=== PATIENT | female | born 1990 | race Caucasian/White ===

== ENCOUNTER 2023-04-19 19:15 | Outpatient (CLI) | payer OTHER, SELFPAY ==
[2023-04-19 19:20] VITALS: PULSE 81; O2SAT 97
[2023-04-19 19:23] VITALS: BP 110/71; PULSE 86
--- NOTE | 2023-04-19 20:09 | PC.OBNST ---
NST Note NST Note Start: 04/19/23 19:25 Freq: ONCE Status: Active Protocol: Document 04/19/23 20:07 [facility] (Rec: 04/19/23 20:09 [facility] [id number]) NST Note 1 Para (# of births) 0 EDC 07/09/23 Gestational Age In Weeks & Days 28 Weeks & 3 Days Patient Presented with Complaint(s) of Decreased movement Reactive Yes Appropriate for Gestational Age Yes KARYN Santana RN Date 04/19/23 Reactive Yes Appropriate for Gestational Age Yes KARYN Merchant RN Date 04/19/23 OB NST charge Yes Complete NST Note via Write Note Yes The provider's electronic signature indicates the NST is reactive/appropriate for gestational age. *Note to provider: If an addendum is required, open the patient's chart and click on the note under the Nurse/Allied Health tab. The provider's electronic signature indicates the NST is reactive/appropriate for gestational age. *Note to provider: If an addendum is required, open the patient's chart and click on the note under the Nurse/Allied Health tab.
== END 2023-04-19 19:55 | disposition home or self-care (01) ==
LOC: OB OUT 19:16 → OB 19:17
PROVIDERS: Visit Provider Surgery
DX: O36.8130 Decreased fetal movements, third trimester, not applicable or unspecified (principal); Z3A.28 28 weeks gestation of pregnancy
CPT/HCPCS: 59025; 99213

== ENCOUNTER 2023-07-15 17:07 | Inpatient (IN) | payer OTHER, SELFPAY ==
[2023-07-15] VITALS (7 sets, daily range): BP systolic 99–117; BP diastolic 58–80; PULSE 76–113; RESP 16–18; TEMP 37–37.2; O2SAT 98; BMI 34.4
--- NOTE | 2023-07-15 18:04 | PM.OBHPLI ---
OB - H&P: HPI Labor/Induction History of Present Illness Time Seen by Provider: 18:00 Date Seen: 07/15/23 Chief Complaint: The patient is a 33 year old 1 para 0 at 40 6/7 weeks gestation by 6wk US not c/w LMP, who presents for postdates induction. Chief complaint: Maternity : 1 Para: 0 Date of last menstrual period: 09/19/22 Estimated date of delivery: 06/26/23 Gestational age based on last menstrual period: 42 Narrative: Keisha Taylor is a 33 year old 1 para 0 at 40 6/7 weeks gestation by 6wk US not c/w LMP, who presents for postdates induction. Her overall has been uncomplicated. she did have anemia prior to and this was followed during and improving on iron supplement when last checked 1 month ago. Not feeling contractions. No LOF. +FM. No headaches or vision changes. Has had some nausea, no vomiting. no recent illness otherwise. History of Present Dating criteria: based on 1st trimester US only care: good care Ultrasounds: normal 1st trimester US and normal mid trimester US Medical complications: none Labs Blood type: A (+) positive Rubella: immune RPR/VDLR: nonreactive GBS status: negative HBsAG: negative Meds Home Medications and Allergies Home Medications Medication Instructions Recorded Confirmed Type citalopram 20 mg tablet 20 mg PO DAILY 04/19/23 07/15/23 History clindamycin 1 %-benzoyl peroxide 5 1 applic topical BID 04/19/23 07/15/23 History % topical gel ferrous sulfate 325 mg (65 mg 325 mg PO Q1D 04/19/23 07/15/23 History iron) tablet qrgeucxp-wfw-Aa-FA 1 mg tab PO 04/19/23 History tablet Allergies Allergy/AdvReac Type Severity Reaction Status Date / Time No Known Drug Allergies Allergy Verified 04/19/23 19:49 OB - H&P: Exam Physical Exam: Vital signs: Temp Pulse Resp BP Pulse Ox 98.8 F 113 H 16 117/80 98 07/15/23 17:19 07/15/23 17:19 07/15/23 17:19 07/15/23 17:19 07/15/23 17:18 Constitutional: Constitutional: no acute distress and cooperative Routine HEENT Exam: Head: Present normal inspection Eye: Present normal appearance ENT: Present mucous membranes moist Routine Respiratory Exam: Respiratory: Present CTA bilaterally Routine Cardiovascular Exam: Cardiovascular: RRR Routine Exam: Perineum Description: Normal Detailed Labor and Delivery Exam: Patient Gravid: Yes Dilation (cm): 2 Effacement (%): 50 Cervix position: anterior Consistency: medium Cervical ripeness score: 5 Contraction frequency (min): 0 Fetus (Single): Station: -3 Amniotic Membrane Status: intact Heart Rate Baseline: 130 Monitor Accelerations: Present Monitor Decelerations: None Grinder Machine Setter Variability: Moderate (6-25) Routine Neurological Exam: Present alert and oriented X3 Routine Psychiatric Exam: Present normal affect, normal thought process, cooperative and good insight OB - Problem Based A/P Additional Plan (1) Term : Status: Acute Plan Induction discussed at length in clinic and pt in agreement with plan. Cook catheter placed without difficulty. Will start low dose pitocin overnight per protocol. Reviewed variability in inductions courses, various techniques and all ?'s answered. GBS negative Delivery/Labor/Induction Plan Plan: induction Induction method: Intracervical balloon catheter
[2023-07-15 18:54] LABS: Basophils Absolute Auto 0.01 K/uL (0.00-0.30); Basophils Percent Auto 0.1 % (0.0-3.0); Eosinophils Absolute Auto 0.08 K/uL (0.00-0.50); Hematocrit 31.9 % (33.0-51.0); Hemoglobin* 10.9 gm/dL (12.0-16.0); Immature Granulocytes Abs Auto 0.04 K/uL (0.00-0.30); Immature Granulocytes Pct Auto 0.5 %; Lymphocytes Percent Auto 19.6 % (20-44); Mean Corpuscular HGB Conc 34 gm/dL (32-36); Mean Corpuscular Hemoglobin 31 pg (26-34); Mean Corpuscular Volume 90 fL (80-100); Monocytes Percent Auto 8.2 % (0.0-11.0); Neutrophils Percent Auto 70.6 % (42.0-72.0); Platelet Count* 238 K/uL (140-440); RDW Coefficient of Variation % 12.3 % (11.5-15.5); Red Blood Count 3.54 m/uL (4.00-5.20); White Blood Count* 8.21 K/uL (4.50-11.00)
[2023-07-15 18:55] LABS: Slide Review Reflex No
[2023-07-15] MEDS: OXYTOCIN 30 unit/500 ML in NS 30 UNIT/500 ML BAG IVPB (21:05)
[2023-07-15] MEDS: LACTATED RINGERS 1000 ML 1,000 ML 125 ML IV (21:05)
[2023-07-15] MEDS: hydrOXYzine pamoate 25 MG CAPSULE 100 MG PO (21:15)
[2023-07-16] VITALS (76 sets, daily range): BP systolic 82–139; BP diastolic 48–106; PULSE 60–108; RESP 16–18; TEMP 36.4–37.5; O2SAT 93–100
[2023-07-16] MEDS: LACTATED RINGERS 1000 ML 1,000 ML 125 ML IV ×4 (05:08→22:21)
--- NOTE | 2023-07-16 07:13 | P.OBPN_ITS ---
Subjective Time Seen by Provider: 06:30 Date Seen: 07/16/23 Narrative: Pt is G1 at 41weeks being induced for postdates. Cook placed overnight, removed this morning 12 hours later. Low dose pitocin protocol started overnight, now on 9. Pt reports feeling regular ctxs, mild. can talk through them. Objective Vital Signs: Last Vital Signs Temp 98.6 F 07/16/23 05:12 Pulse 75 07/16/23 06:11 Resp 16 07/16/23 05:12 BP 114/75 07/16/23 06:11 Pulse Ox 98 07/15/23 17:18 Pelvic Exam Dilation (cm): 5 Effacement (%): 70 Station: -1 Contractions Monitor mode: External Contraction Frequency: q2-3 min Contraction pattern: Regular Contraction intensity: Moderate Pitocin Rate (mU/min): 9 Assessment Assessment: induction ongoing Station: -1 Amniotic Membrane Status: AROM (at 643 with small amount blood tinged fluid) Heart Rate Baseline: 130 Provider Service Representative Variability: Moderate (6-25) Monitor Accelerations: Present Monitor Decelerations: Early Tracing Comments: prior to AROM was 130's moderate variability, +accels, no decels. After AROM developed 4 recurrent decels, ctxs not picking up well so unclear if early's or lates. Adjusted monitor, changed position and decels improved but still unable draft roller picker ctxs. IUPC placed. No with FHT 130's with moderate variability, occ ear ly decel. Plan Plan: -Risks vs benefits AROM discussed with pt and option AROM vs continued increased pitocin discussed. Decided on AROM as above with small blood tinged fluid. Decels started after, rechecked and /-1, stretchy. Decels improved with changing position. Ctx strength increasing and pt now breathing through. IUPC placed. Occ early. discussed all the above with pt and and all ?'s answered.
[2023-07-16] MEDS: ONDANSETRON 2 MG/ML inj 4 MG IV (07:45)
[2023-07-16] MEDS: LACTATED RINGERS 1000 ML 1,000 ML 925 ML IV (08:46)
[2023-07-16] MEDS: ROPIVACAINE 0.2% 100 ml 100 ML 12 MG EPIDURAL (09:02)
--- NOTE | 2023-07-16 09:03 | P.ANBPRC_ITS ---
[facility] Medical History (Updated 07/15/23 @ 18:19 by Sofie Granados, DO) Anxiety ?F41.9 - Anxiety disorder, unspecified (ICD-10) Depression ?F32.A - Depression, unspecified (ICD-10) Social History What is your current living situation?: I presently have a place to live Problems where you live: no known problems In the past 12 months, utilities in danger of being shut off: no In past 12 months, lack of transportation kept you from medical appts, meetings, work, or getting things needed for daily living: no In the past 12 mos, have been you worried that your food would run out before you had money to buy more?: never true In the past 12 mos, the food you bought just didn't last and you didn't have money to buy more?: never true Smoking Status: Never smoker How often does anyone, including family, friends and others, physically hurt you : never How often does anyone, including family, friends and others, insult or talk down to you: never How often does anyone, including family, friends and others, threaten you with harm: never How often does anyone, including family, friends and others, scream or curse at you: never Meds Home Medications and Allergies Home Medications Medication Instructions Recorded Confirmed Type citalopram 20 mg tablet 20 mg PO DAILY 04/19/23 07/15/23 History clindamycin 1 %-benzoyl peroxide 5 1 applic topical BID 04/19/23 07/15/23 History % topical gel ferrous sulfate 325 mg (65 mg 325 mg PO Q1D 04/19/23 07/15/23 History iron) tablet [id number]-xhh-Al-[id number] 1 mg 1 tab PO DAILY 04/19/23 07/15/23 History tablet Allergies Allergy/AdvReac Type Severity Reaction Status Date / Time No Known Drug Allergies Allergy Verified 04/19/23 19:49 Results Labs Labs: Laboratory Results - last 24 hr 07/15/23 18:45 WBC 8.21 RBC 3.54 L Hgb 10.9 L Hct 31.9 L MCV 90 MCH 31 MCHC 34 RDW Coeff of Albertina 12.3 Plt Count 238 Neut % (Auto) 70.6 Lymph % (Auto) 19.6 L [place] % (Auto) 8.2 Eos % (Auto) 1.0 Baso % (Auto) 0.1 Neut # (Auto) 5.80 Lymph # (Auto) 1.60 [place] # (Auto) 0.70 Eos # (Auto) 0.08 Baso # (Auto) 0.01 Abs Immat Gran (auto) 0.04 Imm/Tot Granulo (auto) 0.5 Blood Type A Positive Antibody Screen NEGATIVE Vital Signs Vital Signs: Last Vital Signs Temp 98.6 F 07/16/23 08:01 Pulse 69 07/16/23 09:01 Resp 16 07/16/23 05:12 BP 118/71 07/16/23 09:01 Pulse Ox 100 07/16/23 08:59 Weight: 85.548 kg Height: 157.48 cm Anesthesia Procedures Epidural Insertion Patient Location: OB Start Time: 08:40 Stop Time: 09:04 Start Date: 07/16/23 Stop Date: 07/16/23 Reason for Block: procedure for pain Patient Position: sitting Performed By: Alexandro Calhoun Preanesthetic Checklist: IV checked, risks and benefits discussed, monitors and equipment checked, pre-op evaluation, timeout performed and anesthesia consent Prep: chlorhexidine gluconate Monitoring: blood pressure monitoring, continuous pulse oximetry and heart rate Approach: midline Vertebral Space: lumbar (1-5) Epidural Technique: MARTHA saline Needle Type: Tuohy needle Injection Technique: continuous catheter Needle gauge: 17 Needle Length (cm): 10 cm Needle Insertion Depth (cm): 7 Catheter Gauge: 19 Catheter Type: multi-orifice Catheter at skin depth (cm): 13 Test Dose Result: negative and lidocaine 1.5% with epinephrine 1 to 200,000
[2023-07-16] MEDS: PHENYLEPHRINE 100 MCG/ML SYRINGE IVP ×2 (10:50→11:51)
--- NOTE | 2023-07-16 11:21 | P.OBPN_ITS ---
Subjective Time Seen by Provider: 11:10 Date Seen: 07/16/23 Narrative: Notifed by RN pt have variables. Have changed positions, given IVF. pitocin has been down to 4 since 946. pt is comfortable with epidural Objective Vital Signs: Last Vital Signs Temp 98.6 F 07/16/23 08:01 Pulse 68 07/16/23 11:19 Resp 16 07/16/23 05:12 BP 109/58 L 07/16/23 11:19 Pulse Ox 100 07/16/23 08:59 Pelvic Exam Dilation (cm): 9 Effacement (%): 80 Station: 0 Contractions Monitor mode: Internal Contraction pattern: Regular Pitocin Rate (mU/min): 4 Assessment Assessment: active labor Station: 0 Amniotic Membrane Status: AROM (at 643 with small amount blood tinged fluid) Heart Rate Baseline: 140 Security Police Officer Variability: Moderate (6-25) Monitor Accelerations: Present Monitor Decelerations: Variable Plan Plan: Low BP, RN gave phenylephrine with recurrent variables. Cervix with significant change since last check around 9:30 6cm and now 9cm--with cervix mostly on right and barely rim anterior and posterior and not on left. Pt currently on right side. Discussed update with pt and . Continue with expectant management
[2023-07-16] MEDS: ePHEDrine sulfate 5 MG/ML inj 10 MG IVP (12:13)
--- NOTE | 2023-07-16 14:14 | PM.OBPNL ---
Subjective Time Seen by Provider: 13:00 Date Seen: 07/16/23 Narrative: Pt has been 9cm since around 1100. dilated quickly from 6-9 over approximately 1.5 hours. When I checked pt shortly after 1100, cervix was no longer palpable on left but present on right and rim posteriorly and anteriorly. Mom placed on right side and rechecked by nursing around noon and RN reported now cervix noted on left but not right. Pt was not feeling any pressure or ctxs. Epidural was turned down and position changed. Objective Vital Signs: Last Vital Signs Temp 98.6 F 07/16/23 08:01 Pulse 78 07/16/23 14:04 Resp 16 07/16/23 05:12 BP 130/70 07/16/23 14:04 Pulse Ox 100 07/16/23 08:59 Pelvic Exam Dilation (cm): 9 Effacement (%): 100 Station: 0 Contractions Monitor mode: Internal Contraction pattern: Regular Contraction intensity: Moderate Pitocin Rate (mU/min): 4 Assessment Assessment: induction ongoing Station: 0 Amniotic Membrane Status: AROM (at 643 with small amount blood tinged fluid) Heart Rate Baseline: 130 Fdc Variability: Moderate (6-25) Monitor Accelerations: Present Monitor Decelerations: Variable Plan Plan: I rechecked pt around 1300 and cervix now symmetrical with cervix felt all around but remains 9cm and head now more behind pubic symphysis. ?OP position, difficult to assess on exam. Bedside US confirms cephalic. Contractions are decreasing. There has been some continual bloody mucous with checks but no edmond bleeding. pt without pain. FHT's category 2. I consulted OB application specialist Dr Buckley. Discussed labor dystocia and concern for possible signs of abruption with station/position now feeling different, some bleeding noted and decreased contractions. Dr Buckley on floor, reviewed strip and case with me. Dr Buckley noted even if possible abruption, treatment is delivery. MVU's not adequate. Recommended increasing pitocin. Monitoring closely. Discussed with pt and . All ?'s answered.
--- NOTE | 2023-07-16 17:25 | PM.OBCN1 ---
OB - CN: HPI Date of Consult Time Seen by Provider: 17:25 Date Seen: 07/16/23 Patient: Christine Patient Consult date: 07/16/23 Requesting Physician: Sofie Granados DO Primary Care Provider: Not a Local Provider Consult Narrative Reason for consult: other (Concern for abruption) Narrative: The patient is a 33 year old G 1 P 0 at 41 weeks gestation that was admitted to the Center on 07/15/23 for induction of labor in the setting of late term gestation. course was complicated by gestational anemia and maternal mood disorder. Her induction course has included Cook catheter, Pitocin and artificial rupture membranes. Labor course significant for labor dystocia in the active phase. I was initially consulted at [address] Granados given concern for placental abruption. Patient is noted to have made rapid change from 6-9 cm dilated, with intermittent variable decelerations and vaginal bleeding. She denied any edmond vaginal bleeding, rather noted increased volume of mucus/blood with cervical exams and on patient thighs. Since achieving dilation of 9.5cm at 11:00 a.m., she noted no further change and did place an intrauterine pressure catheter. Despite this, she has continued to have inadequate cervical change and ongoing vaginal bleeding. Pitocin was turned off to allow for discussion. We reviewed that her clinical picture may be consistent with a placental abruption or just excess bloody show. Regardless, status is reassuring and primarily category 1. As such, plan to proceed with Pitocin titration pending heart rate and IUPC data. We are hopeful if we can achieve adequate MVU, that she would reach complete dilation for hopeful . Care was resumed by Dr. Granados - I did not see/examine the patient at this time. Following this discussion, Pitocin titration was continued as above. Patient continued to be unchanged at 9.5 cm dilation for a total of 6 hours of inadequate contractions. Dr. Granados and I revisited Keisha's clinical course. Fortunately, she has not had any vaginal bleeding and heart rate tracing has been reassuring - category 1 to category 2 for periods of variable decelerations. At present, baseline is 150 beats per minute with moderate variability and rare variable decelerations. Discussed my recommendation to proceed with primary delivery in the setting of arrest of dilation. Pitocin was discontinued. I presented to the bedside to meet Keisha and her partner alognside Dr. Taylor. We again discussed the indication for primary delivery being arrested dilation in the active phase of labor, where continuing with effective management/augmentation would increase her risk for hemorrhage. I recommend primary delivery and they were in agreement. We discussed the risks of surgery - including bleeding, infection, damage to surrounding structures. She has an active type and screen on file, would be agreeable to blood transfusion if necessary. Plan to proceed with perioperative azithromycin and Ancef for surgical prophylaxis. She understands the uterus, tubes, ovaries, bowel, bladder, blood vessels or baby could be injured in . All questions answered to the best my abilities. Plan to proceed to the operating room for primary delivery. History History 1 Elective abortions Para 0 Spontaneous abortions Hx # Term Pregnancies Ectopic pregnancies Hx # Pregnancies Multiple births Number of Living Children 0 Labs Blood type: A (+) positive Rubella: immune RPR/VDLR: nonreactive GBS status: negative HBsAG: negative OB Labs: Lab Assessment Start: 07/15/23 20:00 Freq: ONCE Status: Complete Protocol: [employer].OBGBS Activity Type Activity Date Activity User E-sign Co-sign Detail Recorded Client Recorded Date Recorded By Document 07/15/23 21:40 UMESH [id number] 07/15/23 21:44 UMESH 07/15/23 21:40 Lab Assessment GBS Status negative GBS Additional Criteria None No Treatment Needed OK Are Labs Available Yes Maternal Blood Type A Maternal RH Factor Positive Evaluate Maternal Rubella Immune Status Immune Hepatitis B Surface Antigen Negative Maternal HIV Status Negative Maternal Syphillis (RPR) Status Negative [facility] Medical History (Updated 07/15/23 @ 18:19 by Sofie Granados, DO) Anxiety ?F41.9 - Anxiety disorder, unspecified (ICD-10) Depression ?F32.A - Depression, unspecified (ICD-10) Social History What is your current living situation?: I presently have a place to live Problems where you live: no known problems In the past 12 months, utilities in danger of being shut off: no In past 12 months, lack of transportation kept you from medical appts, meetings, work, or getting things needed for daily living: no In the past 12 mos, have been you worried that your food would run out before you had money to buy more?: never true In the past 12 mos, the food you bought just didn't last and you didn't have money to buy more?: never true Smoking Status: Never smoker How often does anyone, including family, friends and others, physically hurt you: never How often does anyone, including family, friends and others, insult or talk down to you: never How often does anyone, including family, friends and others, threaten you with harm: never How often does anyone, including family, friends and others, scream or curse at you: never Meds Home Medications and Allergies Home Medications Medication Instructions Recorded Confirmed Type citalopram 20 mg tablet 20 mg PO DAILY 04/19/23 07/15/23 History clindamycin 1 %-benzoyl peroxide 5 1 applic topical BID 04/19/23 07/15/23 History % topical gel ferrous sulfate 325 mg (65 mg 325 mg PO Q1D 04/19/23 07/15/23 History iron) tablet pcwqwlzl-pdb-Fp-FA 1 mg 1 tab PO DAILY 04/19/23 07/15/23 History tablet Allergies Allergy/AdvReac Type Severity Reaction Status Date / Time No Known Drug Allergies Allergy Verified 04/19/23 19:49 OB - H&P: Exam Physical Exam: Vital signs: Temp Pulse Resp BP Pulse Ox 98.3 F 82 16 123/71 100 07/16/23 15:03 07/16/23 17:18 07/16/23 05:12 07/16/23 17:18 07/16/23 08:59 OB - Results Labs Labs: Short CBC 07/15/23 Range/Units 18:45 WBC 8.21 (4.50-11.00) K/uL Hgb 10.9 L (12.0-16.0) gm/dL Hct 31.9 L (33.0-51.0) % Plt Count 238 (140-440) K/uL OB - CN: A/P Assessment and Plan (1) Term : Status: Acute
--- NOTE | 2023-07-16 17:32 | PM.OBPNL ---
Subjective Time Seen by Provider: 16:45 Date Seen: 07/16/23 Narrative: pt reports feeling pressure with contractions and some persistent between contractions. She has been trying various laboring positions Objective Vital Signs: Last Vital Signs Temp 98.3 F 07/16/23 15:03 Pulse 82 07/16/23 17:18 Resp 16 07/16/23 05:12 BP 123/71 07/16/23 17:18 Pulse Ox 100 07/16/23 08:59 Pelvic Exam Dilation (cm): 9.5 Effacement (%): 100 Station: 1+ Contractions Monitor mode: Internal Contraction pattern: Regular Contraction intensity: Moderate Pitocin Rate (mU/min): 12 Assessment Assessment: induction ongoing and other (labor dystocia, arrest of dilitation) Station: +1 Amniotic Membrane Status: AROM (at 643 with small amount blood tinged fluid) Heart Rate Baseline: 150 Residential Variability: Moderate (6-25) Monitor Accelerations: Present Monitor Decelerations: Variable Plan Plan: Pt without significant cervical change now for [address] Buckley OB monitoring analyst. Discussed with pt and risks vs benefits c/s vs continuing with attempts at vaginal delivery. All ?'s answered. They would like to proceed with c/s. Dr Buckley and OR crew notified.
[2023-07-16] MEDS: AZITHROMYCIN 500 MG in 0.9 % SODIUM CHLORIDE 250 ml 250 ML 255 MG IVPB (17:37)
[2023-07-16] MEDS: METHYLERGONOVINE MALEATE 0.2 MG/ML INJ IV (18:17)
[2023-07-16] MEDS: miSOPROStoL 800 MCG/4 TABLET PR (19:07)
--- NOTE | 2023-07-16 19:13 | P.OBPRC_ITS ---
Procedure Time Seen by Provider: 19:13 Date of procedure: 07/16/23 Pre-op diagnosis: Arrest of dilation Post-op diagnosis: same Procedure Done: only Will [facility] bill your pro fee for this procedure?: Yes Blood Loss Measurement Type: QBL (1.16L) Bakri Used: No Urine Output (mL): 200 Urine Output Comment: Bloody prior to incision, noted to be clearing in the tubing at end of case Surgeon: Ruslan Buckley MD Anesthesia Type: Epidural Findings: ROP position Normal uterus, tubes and ovaries Procedure Name: Primary delivery Procedure Description: PROCEDURE IN DETAIL: Patient was taken to the operating room with IV running. She received cefazolin and azithryomycin in preoperative prophylaxis. Epidural anesthesia had previously been administered. James catheter was previously inserted. She was prepped and draped in the usual sterile fashion. Anesthesia was tested and found to be adequate. A low-transverse skin incision was made with a scalpel and carried through to the underlying layer of fascia with the scalpel. The subcutaneous fat was dissected off the underlying fascia with Bovie and gentle blunt dissection. The fascia was nicked in the midline with a scalpel, and this incision was extended laterally with scissors. The fascia was elevated with Mahin clamps and rectus muscles were deflected. The rectus muscles were in the midline. Peritoneum was identified and entered bluntly. Bovie was used to widen this opening laterally. Raheem O retractor was inserted and tightened down, providing excellent visualization of the lower uterine segment. The bladder reflection was found to be advanced along the lower uterine segment. A bladder flap was created with a combination of sharp and blunt dissection. Low-transverse uterine incision was made with a scalpel. Incision was widened bluntly. The infant's head was grasped through the hysterotomy (noted to be OP) and delivered with the help of fundal pressure. The remainder of the body delivered without incident. Cord was clamped and cut after 30 seconds. was handed off to attending nurses. The placenta was delivered with gentle traction on the cord. The uterus was cleaned of all clots and debris with the dry lap pad x2. Uterine atony was noted, where methergine and TXA were administered. The hysterotomy was reapproximated with 0 Vicryl in a running, locked fashion. Second layer of the same suture was used in imbricating fashion to obtain hemostasis. The uterus was reintroduced to the peritoneal cavity. Uterine tone was noted to be significantly improved. The hysterotomy was inspected, ongoing small volume bleeding noted at the left margin given serosal extension inferiorly - closed in a running/locking fashion. The adnexa were examined and noted to be normal in appearance. The cul-de-sac and gutters were cleansed with dampened laparotomy sponge, removing any further clots and debris. Mild and intermittent ongoing atony was noted, improved with uterine massage. The Raheem O retractor was removed. The hysterotomy was reexamined and found to be hemostatic. The rectus muscles were examined and found to be hemostatic. The fascia was reapproximated with 0 Vicryl in a running fashion. Subcutaneous fat was irrigated and Bovie used on oozing vessels. The subcutaneous fat was reapproximated with 2 0 vicryl in an interrupted fashion. The skin was closed with a subcuticular stitch of 3-0 Monocryl. Surgical glue was applied above this. Dressing was applied. Fundal massage performed alongside LEARNING AND DEVELOPMENT ASSISTANT. Excellent uterine tone noted, fundus at umbilicus. Prophylactic cytotec was administered rectally. Patient tolerated procedure well was taken to recovery area in stable condition. Complications: hemorrhage secondary to uterine atony Pathology: specimen obtained, sent to pathology Surgery Debrief Performed: Yes Condition: stable Disposition: floor [place] Infant total score - 1 minute: 9 total score - 5 minute: 9
--- NOTE | 2023-07-16 19:56 | P.ANES_ITS ---
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
--- NOTE | 2023-07-16 19:57 | W.PM.NB ---
Nerve Block Nerve Block Time Seen by Provider: 19:14 Date Seen: 07/16/23 Type of block requested by surgeon for post-operative analgesia: TAP Side: bilateral Time out performed: Yes Verification of patient name: Yes Verification of date of : Yes Site marking: site marked Name of person performing procedure: Isidoro Amanuel Continuous monitoring Was continuous monitoring of O2 sat, B/P, electronic device monitor, recorded every 15 minutes?: Yes Procedure Checklist: sterile prep, needles and gloves Ultrasound guided. Images saved: Yes Medications given in 5ml increments after negative aspiration: Marcaine %: 0.25 mL: 30 Needle gauge: 21 and Exparel mL: 10 Needle gauge: 21 Patient tolerated procedure well: Yes Additional comments: Injected in 5mL increments after negative aspiration Block Charges Block Charge (with Pro Fee): TAP Bilateral Use of Ultrasound Machine for Block: Yes- US Guidance/pain block
[2023-07-17] VITALS (22 sets, daily range): BP systolic 95–108; BP diastolic 64–72; PULSE 83–99; RESP 16–18; TEMP 36.6; O2SAT 97–100
[2023-07-17] MEDS: KETOROLAC 30 MG/ML inj IVP ×4 (01:14→20:50)
[2023-07-17] MEDS: CITALOPRAM HYDROBROMIDE 20 MG TABLET PO (08:24)
[2023-07-17] MEDS: DOCUSATE SODIUM 100 MG CAPSULE PO (08:24)
--- NOTE | 2023-07-17 09:24 | PM.OBPNVD1 ---
OB - PN:Subj Subjective Time Seen by Provider: 09:24 Date Seen: 07/17/23 Interval history: Keisha is a 33 y.o. who was admitted to [facility] for [facility]OL for dates.? She had an uncomplicated primary .? ? ? Narrative: The patient feels well.? The pain is well controlled with current medications.? She has no new complaints.? She is breast feeding and reports things are going well.? the patient has done well.? Vitals have been stable.? She has remained afebrile.? Has a good appetite, is tolerating a general diet.? Her catheter is still in at this time.? She is passing gas and has not had a bowel movement.? She is ambulating and denies any dizziness.? Has Small amount of rubra lochia.? OB - PN: Obj Exam Physical Exam: Vital signs: Temp Pulse Resp BP Pulse Ox O2 Del Method 97.9 F 83 18 104/72 99 Room Air 07/17/23 03:34 07/17/23 03:34 07/17/23 06:58 07/17/23 03:34 07/17/23 03:34 07/17/23 03:34 Narrative: VSS.? Afebrile? GENERAL APPEARANCE:? normal affect, alert, no distress? MOOD:? appropriate? HEENT: normocephalic, neck supple, full ROM? CHEST:? Symmetrical chest wall movement.? Normal respiratory effort.? Clear to auscultation? HEART:? regular rate and rhythm? ABDOMEN:? soft, non-tender. Uterine fundus is firm, 1 below Umbilicus, Midline and is appropriate for the stage of recovery.? Bowel sounds present.? EXTREMITIES:? normal and +1 edema? SKIN: warm, dry.? Dressing on, clean/dry/intact.? No signs of infection noted.? Urinary Catheter Management: Urethral: Cath placed during this visit: yes Urethral indwelling: Yes Reason for continuing: surgical procedure Insertion date: 07/16/23 OB - PN: A/P Delivery Assessment and Plan (1) Status post primary low transverse section: Status: Acute (2) Lactating mother: Status: Acute Plan day: 1 Comments: Assessment/Plan? G 1 P 1 status post uncomplicated primary .? ?? 1.? Continue route PP cares? 2.? .? May see if desired? 3.? Anticipate discharge home tomorrow or the following day per pt preference? ?
[2023-07-17 09:39] LABS: Hemoglobin* 8.1 gm/dL (12.0-16.0)
[2023-07-17] MEDS: LACTATED RINGERS 1000 ML 1,000 ML IV (11:02)
--- NOTE | 2023-07-17 16:47 | PM.ANPOST ---
Post Anesthesia Note Post Anesthesia Note Patient seen: Inpatient Respiratory Status: adequate Cardiovascular Status: adequate Mental Status: baseline Pain: adequate Temp: baseline Anesthetic awareness: N/A Complications: none Follow care: none
[2023-07-18 00:41] VITALS: BP 99/66; PULSE 80; RESP 16; O2SAT 99
[2023-07-18] MEDS: LANOLIN CREAM 1 APPLIC TOPICAL (00:55)
[2023-07-18] MEDS: KETOROLAC 30 MG/ML inj IVP (03:50)
[2023-07-18] MEDS: IBUPROFEN 600 MG TABLET PO ×3 (08:19→21:45)
--- NOTE | 2023-07-18 08:36 | P.OBPN_ITS ---
OB - PN:Subj Subjective Date Seen: 07/18/23 Interval history: Keisha is a 33 y.o. who was admitted to [facility] for IOL for dates.? She had an uncomplicated primary .? ? ? Patient comments OB post-: no complaints, pain well controlled, tolerating diet and flatus present Warren status: and doing well Warren feeding status: exclusively Narrative: The patient feels well.? The pain is well controlled with current medications.? She has no new complaints.? Urinary output is adequate and she is voiding without difficulty.? Has a good appetite, is tolerating a general diet, is passing flatus, and has had a bowel movement.? Has small amount of rubra lochia.? She is ambulating well.?She is and states that is going well. She is working with staff to improve her feedings. She denies feeling weak, dizzy, or lightheaded. She is ambulating without difficulty. Will order a repeat Hgb for today. OB - PN: Obj Exam Physical Exam: Vital signs: Temp Pulse Resp BP Pulse Ox O2 Del Method 97.9 F 80 16 99/66 99 Room Air 07/17/23 17:15 07/18/23 00:41 07/18/23 00:41 07/18/23 00:41 07/18/23 00:41 07/18/23 00:41 Narrative: Discharge Examination? GENERAL APPEARANCE:? normal affect, alert, no distress? MOOD:? appropriate? CHEST:? clear to auscultation and percussion? HEART:? regular rate and rhythm? ABDOMEN:? soft, non-tender the uterine fundus is 2 cm Below Umbilicus, Midline and is appropriate for the stage of recovery. Incision well approximated without edema, redness, warmth, or drainage. Glue closure intact.? EXTREMITIES:? normal and no edema? Urinary Catheter Management: Urethral: Cath placed during this visit: yes, but has since been removed by the nurse Urethral indwelling: Yes Reason for continuing: decision to DC catheter Insertion date: 07/16/23 Removal date: 07/17/23 Removal time: 13:15 OB - PN: Obj Data Labs Labs: Laboratory Results - last 24 hr 07/17/23 09:30 Hgb 8.1 L OB - PN: A/P Delivery Assessment and Plan (1) Status post primary low transverse section: Status: Acute (2) Lactating mother: Status: Acute (3) Anemia, : Status: Acute (4) care following delivery: Status: Acute Plan Anticipate discharge tomorrow per patient preference. Plan day: 1 Plan: routine care
[2023-07-18] MEDS: FERROUS SULFATE 325 MG TABLET PO (09:14)
[2023-07-18] MEDS: CITALOPRAM HYDROBROMIDE 20 MG TABLET PO (09:14)
[2023-07-18 09:28] VITALS: BP 113/78; PULSE 110; RESP 16; TEMP 37; O2SAT 99
[2023-07-18 09:39] LABS: Hemoglobin* 7.9 gm/dL (12.0-16.0)
[2023-07-18 16:52] VITALS: BP 109/74; PULSE 85; TEMP 36.8; O2SAT 98
[2023-07-18] MEDS: ACETAMINOPHEN 500 MG TABLET 1000 MG PO (17:04)
[2023-07-19 02:16] VITALS: BP 106/75; PULSE 83; RESP 18; TEMP 36.6; O2SAT 98
[2023-07-19] MEDS: ACETAMINOPHEN 500 MG TABLET 1000 MG PO ×2 (02:20→08:19)
[2023-07-19] MEDS: IBUPROFEN 600 MG TABLET PO (05:08)
[2023-07-19 08:12] VITALS: BP 115/80; PULSE 97; RESP 16; TEMP 36.6; O2SAT 100
[2023-07-19] MEDS: CITALOPRAM HYDROBROMIDE 20 MG TABLET PO (08:18)
[2023-07-19 08:19] VITALS: TEMP 36.6
[2023-07-19] MEDS: DOCUSATE SODIUM 100 MG CAPSULE PO (08:19)
--- NOTE | 2023-07-19 11:20 | P.DS_ITS ---
DS: Providers Provider Date Seen: 07/19/23 Date of admission: 07/15/23 17:07 Primary care physician: Not a Local Provider Admitting Clinician: Sofie Granados DO Consults: 07/16/23 14:36 Consult to Physician [CONS] Routine Comment: Consulting Provider: Katty Buckley Has provider been notified: Yes Attending Physician on discharge: Shereen Hawkins MD Date of Discharge: 07/19/23 DS: Diagnosis Discharge Diagnosis (1) Status post primary low transverse section: Status: Acute (2) Anemia due to acute blood loss: Status: Acute (3) Lactating mother: Status: Acute Exam Const: Vital Signs, click to edit/add: Vital Signs - 24 hr 07/18/23 16:52 07/19/23 02:16 07/19/23 08:12 Temperature 98.3 F 98 F 98 F Pulse Rate [Pulse Oximeter] 85 83 97 Respiratory Rate 18 16 Blood Pressure [Ri ght Arm] 109/74 106/75 115/80 Pulse Oximetry 98 98 100 Oxygen Delivery Me thod Room Air Room Air Room Air 07/19/23 08:19 Temperature 98 F Pulse Rate [Pulse Oximeter] Respiratory Rate Blood Pressure [Ri ght Arm] Pulse Oximetry Oxygen Delivery Me thod Documenting provider has reviewed patient's vital signs: yes Common normals: no apparent distress and oriented x3 General appearance: cooperative and comfortable HENMT: Common normals: normocephalic Head and scalp: normocephalic Resp: Common normals: normal respiratory effort Cardio: Common normals: regular rate and regular rhythm Rate: regular rate Rhythm: regular rhythm GI: Common normals: soft to palpation and non-tender Inspection: normal to inspection and incision (Clean, dry, intact, without erythema or tenderness) Palpation: soft Extremity: Common normals: normal to inspection and no pedal edema Neuro: Common normals: oriented x3 Psych: Common normals: affect normal OB - DS: Summary Hospital Course Hospital Course: The patient is a 33 year old G 1now P 1001 that was admitted to the Center on 07/15/23 for induction of labor secondary to postdates gestation at 40 6/7 weeks gestation. She had an uncomplicated primary low transverse delivery for arrest of descent. She delivered a viable female infant. She is breast feeding. course was complicated asymptomatic acute blood loss anemia. the patient has done well. Peripartum Data Infant delivery method: Primary C/S; Labored Procedures: Procedures Operation Date: 07/16/23 18:15 Actual Procedure Side Surgeon p Section Katty Buckley MD Gender: Female Discharge Plan: Home Time Spent with Patient Time attestation: Total time spent providing and/or coordinating discharge services: Discharge Plan Discharge Disposition: Home, Self-Care Date of Admission: 07/15/23 17:07 Attending Provider on Discharge: Shereen Hawkins Consulting Providers: Katty Buckley Primary Care Provider: Provider,Not a Local Condition: Stable Anticipated Discharge Date/Time: 07/19/23 11:24 Discharge Medications: New docusate sodium 100 mg Capsule 100 mg PO DAILY Qty: 30 0RF ibuprofen 600 mg Tablet 600 mg PO Q6H PRN (Reason: Pain) Qty: 30 0RF oxycodone 5 mg Tablet 5 - 10 mg PO Q6H PRN (Reason: Pain) Qty: 20 0RF Continued clindamycin-benzoyl peroxide 1-5 % gel 1 applic topical BID citalopram 20 mg tablet 20 mg PO DAILY ferrous sulfate 325 mg (65 mg iron) tablet 325 mg PO Q1D [id number] 1 mg tablet 1 tab PO DAILY Discharge Orders: Discharge Order (Routine); Ordered 07/19/23 Ordered By: Shereen Hawkins Additional Instructions: Discharge instructions were reviewed with the patient including signs and symptoms of infection and home going medications Lifting Restrictions: 20 pounds for 6 weeks No not submerge incision under water X 2 weeks? Nothing vaginally for 6 weeks: no tampons or intercourse Do not drive while taking narcotic pain medication(s) Off Work or School for 8 weeks Symptoms to report to doctor: * Bleeding that saturates more than one pad per hour * Passing clots larger than the size of a golf ball * Pain not relieved by prescribed medication * Fever above 100.4 degrees Fahrenheit * A foul vaginal odor * Difficulty in emotions, mood, and functions * Thoughts of hurting yourself and/or * Painful, reddened area in your breast * Any drainage, redness, or tenderness in your IV/epidural site * Severe headache that doesn't improve after taking medications * Changes in vision, including temporary loss of vision, blurred vision, and/or light sensitivity * Upper abdominal pain (usually under ribs on the right side) * Decrease in urination or painful, frequent urinating * Chest pain * Shortness of breath * Tenderness or pain with redness and/swelling in the calf(s) of your leg Optional 2-week visit: incision check, discuss infant feeding concerns, review control options and screen for anxiety/depression. 6-week visit for an annual exam. consultation services are available to all mothers and babies for the first year after delivery.? To make an appointment, please call [phone]. Follow Up Appointments: Provider,Not a Local [Primary Care Provider] - Forms: [employer] Info Instructions DS:Data Additional Comments Additional comments: Hemoglobin 7.9
== END 2023-07-19 14:40 | disposition home or self-care (01) | DRG 787 ==
PROVIDERS: Advanced Practice Midwife; Obstetrics & Gynecology; Admitting Provider Family Medicine; Visit Provider Obstetrics & Gynecology
PROC: 10D00Z1 Extraction of Products of Conception, Low, Open Approach (ICD-10-PCS; CPT 59514; principal; 2023-07-16 18:00)
DX: O48.0 Post-term pregnancy (principal); D62 Acute posthemorrhagic anemia; O72.1 Other immediate postpartum hemorrhage; O99.02 Anemia complicating childbirth; D64.9 Anemia, unspecified; O99.344 Other mental disorders complicating childbirth; F41.9 Anxiety disorder, unspecified; F32.A Depression, unspecified; O62.0 Primary inadequate contractions; G89.18 Other acute postprocedural pain; Z37.0 Single live birth; Z3A.40 40 weeks gestation of pregnancy
CPT/HCPCS: 01961; 01967; 36415; 51701; 59200; 64488; 76942; 85018; 85025; 86850; 86900; 86901; 99140; A9270; C1726; C9290; J0456; J0665; J1100; J1885; J2210; J2274; J2371; J2405; J2590; J2795; J3010; J7050; J7120; S0020

== ENCOUNTER 2024-02-18 08:02 | Outpatient (CLI) | payer OTHER, SELFPAY | END 2024-02-18 08:03 | disposition home or self-care (01) | DX: Z00.00 Encounter for general adult medical examination without abnormal findings (principal) | CPT/HCPCS: 36415; 99001 ==